=== PATIENT | male | born 1960 | race Caucasian/White ===

== ENCOUNTER 2016-09-29 07:26 | Day surgery (SDC) | payer OTHER ==
[2016-09-24 15:37] LABS: BASOPHILS 0.5 %; BASOPHILS ABSOLUTE 0.03 10/3/uL (0.0-0.16); EOSINOPHILS 2.2 %; EOSINOPHILS ABSOLUTE 0.14 10/3/uL (0.0-0.53); HEMATOCRIT 37.2 % (40.0-51.0); HEMOGLOBIN 12.5 g/dL (13.6-17.8); IMMATURE GRANULOCYTES 0.3 %; IMMATURE GRANULOCYTES ABSOLUTE 0.02 10/3/uL (0.0-0.11); LYMPHOCYTES 21.5 %; LYMPHOCYTES ABSOLUTE 1.35 10/3/uL (0.67-4.30); MEAN CORPUS HGB CONC 33.6 g/dL (32.0-36.0); MEAN CORPUSCULAR HEMOGLOB 31.7 pg (26.0-34.0); MEAN CORPUSCULAR VOLUME 94.4 fL (80-100); MEAN PLATELET VOLUME 11.4 fL (9.2-13.0); MONOCYTES 8.4 %; MONOCYTES ABSOLUTE 0.53 10/3/uL (0.21-1.20); NEUTROPHILS 67.1 %; NEUTROPHILS ABSOLUTE 4.22 10/3/uL (2.02-8.40); PLATELET COUNT 213 10/3/uL (150-400); RBC DISTRIBUTION WIDTH 14.1 % (12.0-16.0); RED CELL COUNT 3.94 10/6/uL (4.7-6.1); WHITE BLOOD CELLS 6.3 10/3/uL (4.5-10.5)
[2016-09-24 15:39] LABS: MANUAL DIFF NO %
[2016-09-24 15:53] LABS: ALBUMIN 3.5 G/DL (3.5-5.0); ALKALINE PHOSPHATASE 46 U/L (45-117); BUN (BLOOD UREA NITROGEN) 65 MG/DL (6-23); CALCIUM, SERUM 10.6 MG/DL (8.5-10.4); CHLORIDE, SERUM 106 MMOL/L (96-112); CO2 (CARBON DIOXIDE) 24 MMOL/L (24-34); CREATININE 5.38 MG/DL (0.70-1.30); GFR AFRICAN AMERICAN 13 ML/MIN (>=60); GFR NON AFRICAN AMERICAN 11 ML/MIN (>=60); GLOBULIN 3.5 G/DL (2.5-4.1); GLUCOSE, SERUM 85 MG/DL (60-99); POTASSIUM, SERUM 4.8 MMOL/L (3.5-5.3); SGOT(AST) 15 U/L (5-40); SGPT(ALT) 25 U/L (5-65); SODIUM, SERUM 141 MMOL/L (135-148); TOTAL BILIRUBIN 0.4 MG/DL (0-1.2)
--- NOTE | ~2016-09-29 | OP ---
Record Of Operation [facility] [address] [place]. [address] NAME: PRIYA PUTNAM : 58 STATUS : REG [facility] PAT#: [id number] AGE: 55 ADM/REG DATE : 09/29/16 MR#: [id number] REPORT SERV DATE: 09/29/16 DICTATED BY: MELISA JENKINS III DATE: 09/29/16 REPORT STATUS : Draft TRANSCRIBED BY: MODL DATE: 09/29/16 DATE OF PROCEDURE: 09/29/2016 PREOPERATIVE DIAGNOSIS: End-stage renal disease, dialysis dependent, with need for peritoneal dialysis catheter placement. POSTOPERATIVE DIAGNOSIS: End-stage renal disease, dialysis dependent, with need for peritoneal dialysis catheter placement. PROCEDURE: Laparoscopic peritoneal dialysis catheter placement. SURGEON: Melisa Jenkins M.D. ANESTHESIA: General with intubation. COMPLICATIONS: None. ESTIMATED BLOOD LOSS: Less than 5 mL. SPECIMENS: None. DRAINS: None. LAP AND SPONGE COUNT: Correct x3. BRIEF HISTORY: This 55-year-old male has a history of end-stage renal disease. He has elected to have peritoneal dialysis as his primary mode of dialysis. He comes to the operating room now for laparoscopic peritoneal dialysis catheter placement, possible laparotomy. This procedure, the risks, benefits, and alternatives, including but not limited to the risk for bleeding, infection, enterotomy, injury to any abdominal structure, postop small bowel obstruction, ileus, failure of the catheter to function, infection of the catheter or peritonitis requiring removal catheter, occlusion or migration of the catheter requiring revision or replacement, possibility that he may not be a candidate for peritoneal dialysis, possible need for laparotomy, and unforeseen complications including deep venous thrombosis, pulmonary embolus, myocardial infarction, stroke, pneumonia, and were fully explained to the patient prior to the surgery. The expected length of the recovery was explained to the patient. The patient had questions, which were answered. He fully understood the risks and agreed to the surgery as planned. DESCRIPTION OF PROCEDURE: After being properly identified and after discussing the risks and benefits of the surgery with the patient's family again in the preoperative area, he was taken to the operating room, and placed in the supine position on the operating room table. General anesthesia was administered. He was intubated without difficulty. The abdomen was prepped and draped sterilely in the usual fashion. After an appropriate "time-out" per JCAHO standards, a small transverse incision was made just below the umbilicus. The skin and fascia on either sides were elevated with towel clips. A Veress needle was placed Record Of Operation [place] [id number] [facility] [place]. [address] NAME: PRIYA PUTNAM : 58 STATUS : REG [facility] PAT#: [id number] AGE: 55 ADM/REG DATE : 09/29/16 MR#: [id number] REPORT SERV DATE: 09/29/16 DICTATED BY: MELISA JENKINS III DATE: 09/29/16 REPORT STATUS : Draft TRANSCRIBED BY: MODL DATE: 09/29/16 through the incision into the peritoneal cavity. Correct position of the needle in the peritoneal cavity was confirmed by the hanging drop test. The abdominal cavity was then insufflated to about 13 mmHg with carbon dioxide. Correct position of air in the peritoneal cavity was confirmed by palpation. The Veress needle was removed and replaced with a 10 mm trocar. The laparoscope was placed through this. The abdomen was inspected. There was no evidence for carcinomatosis or peritoneal implants or any unusual findings. A 5 mm trocar was then placed to the right of the midline, above the navel, under direct vision with the laparoscope. A 5 mm laparoscope was then placed through the 5 mm trocar. The peritoneal dialysis catheter was then placed through the 10 mm trocar. The catheter was positioned in the correct position in the pelvis in the rectal cul-de-sac. The catheter was anchored in place with two separate 0 Prolene sutures placed in the suprapubic area, in a transfascial fashion, under direct vision with the laparoscope. This resulted in good positioning of the catheter in the rectal cul-de-sac. The 10 mm trocar was then removed under direct vision with the laparoscope. The 5 mm trocar was removed also under direct vision with the laparoscopic to ensure hemostasis in both incisions. The inner cuff of the catheter was then secured at the level of the fascia below the umbilicus with a 0 Prolene pursestring. A subcutaneous tunnel was then made between the two trocar sites, and the end of the dialysis catheter was brought out through the right lateral abdominal wall trocar site. The second cuff was left in the subcutaneous tissue. The catheter was connected to 500 mL bag of saline. The saline was allowed to run through the catheter, it was noted to run easily and quickly with no resistance. The saline bag was then placed to the ground and the fluid was allowed to egress out of the abdominal cavity by gravity. It egressed rapidly and quickly with no occlusion. Hemostasis was assured. The subcutaneous tissue of the infraumbilical incision was closed with the running 3-0 chromic suture. The skin was closed with the running subcuticular 4-0 Monocryl stitch. Dressings were applied. Anesthesia was reversed, and the patient was taken to the recovery in stable condition. He tolerated the procedure well. His family was informed the results of the surgery. The patient will be discharged when stable and comfortable, and tolerating liquids, and able to ambulate. His family was advised that he should keep his wounds clean and dry for two weeks, that he should not drive for at least three to four days after surgery or use narcotics, and that he should resume his usual medications. He was asked to return to see the dialysis nurse in one week and see me in two weeks. He was asked to call or return sooner if any nausea, vomiting, fever, chills, wound drainage, abdominal pain, weakness, or other problems prior to that time. DEWAYNE/NIDA Melisa Jenkins III, M.D. / [id number] CC: Record Of Operation [address] [address] NAME: PRIYA PUTNAM : 58 STATUS : REG [facility] PAT#: [id number] AGE: 55 ADM/REG DATE : 09/29/16 MR#: [id number] REPORT SERV DATE: 09/29/16 DICTATED BY: MELISA JENKINS III DATE: 09/29/16 REPORT STATUS : Draft TRANSCRIBED BY: NIDA DATE: 09/29/16 Cydney Finney III, Jr., M.D.
--- NOTE | ~2016-09-29 | PREOPHP ---
PreOp History and Physical [address] [place]. [address] NAME: PRIYA PTUNAM : 58 STATUS : [facility]#: [id number] AGE: 55 ADM/REG DATE : 09/29/16 MR#: [id number] REPORT SERV DATE: 11/01/16 DICTATED BY: MELISA JENKINS III DATE: 09/15/16 REPORT STATUS : Draft TRANSCRIBED BY: MODL DATE: 09/15/16 HISTORY OF PRESENT ILLNESS: This 55-year-old male comes to the operating room for laparoscopic peritoneal dialysis catheter placement, possible laparotomy. The patient has a history of end-stage renal disease. He is now in need of dialysis and has elected to have peritoneal dialysis as his primary mode of dialysis. He comes now for laparoscopic peritoneal dialysis catheter placement, possible laparotomy. PAST MEDICAL HISTORY: 1. History of stage V chronic kidney disease secondary to hypertension. 2. Hypertension. 3. Hyperlipidemia. 4. Hyperparathyroidism. ALLERGIES: LISINOPRIL. MEDICATIONS: Aldactone, allopurinol, Ambien, aspirin, enalapril, gabapentin, vitamins, and Lexapro. PAST SURGICAL HISTORY: Status post appendectomy. SOCIAL HISTORY: No history of tobacco or alcohol use. FAMILY HISTORY: Positive for diabetes. REVIEW OF SYSTEMS: The patient complains of fatigue, shortness of breath, easy bruising, back pain, and joint pain. PHYSICAL EXAMINATION: GENERAL: This is a large obese male, in no acute distress. He is alert and oriented x3. VITAL SIGNS: Blood pressure 105/74, pulse 80, and temperature 98.1. HEENT: Unremarkable. Cranial nerves II through XII are normal. LUNGS: Clear. CARDIAC: Normal. ABDOMEN: Soft and nontender. ASSESSMENT: 1. A 55-year-old male with end-stage renal disease, dialysis dependent, with need for peritoneal dialysis catheter placement. 2. Hypertension. 3. Obesity. PLAN: The patient comes to the operating room now for laparoscopic peritoneal dialysis catheter placement, possible laparotomy. This procedure, the risks, benefits, and alternatives, including but not limited to the risk for bleeding, infection, enterotomy, injury to any abdominal structure, postop small bowel obstruction, ileus, incisional hernia, PreOp History and Physical [address] [address] NAME: PRIYA PUTNAM : 58 STATUS : [facility] PAT#: [id number] AGE: 55 ADM/REG DATE : 09/29/16 MR#: [id number] REPORT SERV DATE: 11/01/16 DICTATED BY: MELISA JENKINS III DATE: 09/15/16 REPORT STATUS : Draft TRANSCRIBED BY: MODL DATE: 09/15/16 dehiscence, infection of the catheter, peritonitis requiring removal of catheter, migration or occlusion of the catheter requiring revision or replacement, possible need for laparotomy, possibility that he may not be a candidate for peritoneal dialysis and unforeseen complications including deep venous thrombosis, pulmonary embolus, myocardial infarction, stroke, pneumonia, and , have been fully and completely explained to the patient's family prior to surgery. The fact that this is a major operation with risk for major morbidity and mortality has been explained as well as expected length of recovery. The patient's questions have been answered. He understands the risks and agrees to surgery as planned. DEWAYNE/NIDA Melisa Jenkins III, M.D. / [id number]
[~2016-09-29 07:26] MED LIST: AMBIEN CR12.5 MG PO; AURYXIA210 MG PO; FISH-EPA1000 MG PO; LEXAPRO20 PO; NEUR100 PO; SPIRO25 PO; VASOTEC20 MG PO; VITAMIN D31000 UNIT PO; VITC500 PO; Z300 PO
[2016-10-02] MEDS ORDERED: AUG500 PO (13:34)
== END 2016-09-29 13:58 | disposition home or self-care (01) ==
LOC: SDC 07:26
PROVIDERS: Surgery
PROC: 0WHG43Z Insertion of Infusion Device into Peritoneal Cavity, Percutaneous Endoscopic Approach (ICD-10-PCS; principal; 2016-09-29 08:45)
DX: I12.0 Hypertensive chronic kidney disease with stage 5 chronic kidney disease or end stage renal disease (principal); N18.6 End stage renal disease; D64.9 Anemia, unspecified; K21.9 Gastro-esophageal reflux disease without esophagitis; Z99.2 Dependence on renal dialysis; Z88.6 Allergy status to analgesic agent
CPT/HCPCS: 71020; 80053; 85025; 93005; A9270-GY; C1752; J0461; J0690; J2250; J2405; J2710; J3010